=== PATIENT | female | born 1955 | race African-American/Black ===

== ENCOUNTER 2017-07-17 21:19 | Emergency (ER) | payer MEDICAID, OTHER ==
[~2017-07-17] VITALS: Ht 167.6 cm; Wt 72.6 kg
[~2017-07-17 21:19] MED LIST: "\\\"BP MED\\\""; "\\\"CHOLESTEROL MED\\\""; FURO-145 PO; LORA0.5T PO; [UNRECOGNIZED DRUG - REMARK]
[2017-07-17] MEDS ORDERED: MECLIZINE HCL 25 MG TABLET ONE (21:48)
[2017-07-17] MEDS ORDERED: HYDROCODONE/APAP 5/325MG 1 EACH TABLET ONE (21:48)
--- NOTE | 2017-07-17 21:54 | NUR ---
PT BACK FROM RADIOLOGY. PENDING CT HEAD RESULT.
--- NOTE | 2017-07-17 21:58 | NUR ---
PT MEDICATED ORDERED.
--- NOTE | 2017-07-17 21:58 | NUR ---
MITER GRINDER OPERATOR AT BEDSIDE FOR BLOOD DRAW.
[2017-07-17] MEDS ORDERED: HYDROCODONE/APAP 5/325MG 1 EACH TABLET PO ONE (22:00)
[2017-07-17] MEDS ORDERED: MECLIZINE HCL 12.5 MG TABLET PO ONE (22:00)
[2017-07-17 22:12] LABS: BASOPHILS # (AUTO) 0.1 /CMM (0.0-0.2); BASOPHILS % (AUTO) 0.8 % (0.0-2.0); HEMATOCRIT 40 % (33-45); LYMPHOCYTES # (AUTO) 1.1 /CMM (0.8-4.8); LYMPHOCYTES % (AUTO) 14.8 % (20.0-44.0); MEAN CORPUSCULAR HGB CONC 33 g/dl (31.0-36.0); MEAN CORPUSCULAR VOLUME 95 fL (82-100); MONOCYTES # (AUTO) 0.2 /CMM (0.1-1.30); NEUTROPHILS % (AUTO) 81.4 % (43.0-81.0); PLATELET COUNT (AUTO) 282 /CMM (150-450); RDW COEFFICIENT OF VARIATION 13.4 (11.5-15.0); RED BLOOD CELL COUNT(AUTO) 4.19 MIL/uL (4.0-5.2); WHITE BLOOD COUNT (AUTO) 7.4 K/uL (4.3-11.0)
[2017-07-17 22:21] LABS: CALCIUM, SERUM 8.8 mg/dL (8.5-10.1); CREATININE 0.7 mg/dL (0.6-1.3); POTASSIUM 3.9 mmol/L (3.5-5.1)
[2017-07-17 22:27] LABS: ALBUMIN 3.4 g/dL (3.4-5.0); BILIRUBIN,DIRECT 0.1 mg/dL (0.0-0.2); BILIRUBIN,TOTAL 0.3 mg/dL (0.2-1.0); TOTAL PROTEIN, SERUM 7.3 g/dL (6.4-8.2)
--- NOTE | 2017-07-17 23:27 | NUR ---
Patient discharged to home in stable condition. Written and verbal after care instructions given. Patient verbalizes understanding of instruction. ambulatory with a steady gait noted. pt aaox4 no acute distress noted, resp even and unlabored. advic ept not to drive or operate any machinery due to pt was given narcotic medicine. pt verbalize understanding. pt family member at bedisde to take pt home.
--- NOTE | 2017-07-17 23:27 | NUR ---
Note melisaluis in EDM - 07/17/17 at 2330 by AMOL Patient discharged to home in stable condition. Written and verbal after care instructions given. Patient verbalizes understanding of instruction AND RX. PT AMBULATED OUT WITH A STEADY GAIT. VSS. NAD NOTED. PT DENIES PAIN OR DIZZINESS AT THIS TIME.
[2017-07-17 23:28] VITALS: BP 156/85
== END 2017-07-17 23:29 | disposition home or self-care (01) ==
LOC: ER 21:26
DX: R51 Headache (principal); R42 Dizziness and giddiness; E11.9 Type 2 diabetes mellitus without complications; F17.200 Nicotine dependence, unspecified, uncomplicated; I10 Essential (primary) hypertension; E78.5 Hyperlipidemia, unspecified
CPT/HCPCS: 36415; 70450-TC; 80048-TC; 80076-TC; 82962-TC; 85025-TC; A4606; J8597; Z7610

== ENCOUNTER 2017-09-16 17:57 | Inpatient (IN) | payer OTHER ==
[~2017-09-16] VITALS: Ht 170.2 cm; Wt 83.9 kg
--- NOTE | 2017-09-16 18:05 | NUR ---
SOB SINCE YESTERDAY. PATIENT STATES THAT SHE FEELS "LETHARGIC". NAD NOTED. PT AAO X4, AMB WITH STEADY GAIT. RR EVEN AND UNLABORED. PENDING MD BERNSTEIN.
[2017-09-16 18:42] LABS: INR 0.89 (0.85-1.15)
[2017-09-16] MEDS ORDERED: IV NS 0.9% 1,000 ML BAG IV ONE (19:00)
[2017-09-16 19:38] LABS: CALCIUM, SERUM 8.7 mg/dL (8.5-10.1); CHLORIDE 84 mmol/L (98-107); CREATININE 1.9 mg/dL (0.6-1.3); POTASSIUM 5.6 mmol/L (3.5-5.1); UREA NITROGEN, BLOOD 25 mg/dL (7-18)
[2017-09-16 19:43] LABS: TROPONIN I < 0.017 ng/mL (0.00-0.056)
[2017-09-16 20:02] LABS: SODIUM SERUM 119 mmol/L (136-145)
[2017-09-16 20:04] LABS: CARBON DIOXIDE 7 mmol/L (21-32)
[2017-09-16 20:06] LABS: GLUCOSE 846 mg/dL (74-106)
--- NOTE | 2017-09-16 20:12 | NUR ---
[facility]
[2017-09-16] MEDS ORDERED: ESCI5TAB PO (20:25)
[2017-09-16] MEDS ORDERED: INSU100V7 SQ (20:25)
[2017-09-16] MEDS ORDERED: INSULIN REGULAR, HUMAN 100 UNIT/ML 10 ML VIAL ONE (20:26)
[2017-09-16] MEDS ORDERED: INSULIN REGULAR, HUMAN 100 UNIT/ML 10 ML VIAL IV ONE (20:30)
--- NOTE | 2017-09-16 20:34 | NUR ---
CALLED S5 Tech SUPERVISOR SHRIMP POND WAS PAGED.
[2017-09-16] MEDS ORDERED: INSULIN REGULAR, HUMAN 100 UNIT in IV NS 0.9% 99 ML IV STA ×2 (20:36)
[2017-09-16 20:38] LABS: ABG BASE EXCESS -23.1 mmol/L; ABG OXYGEN SATURATION 97.2 % (92.0-98.5); ABG PCO2 15.1 mmHg (35.0-45.0); ABG PH 7.097 (7.350-7.450); ABG PO2 123.2 mmHg (75.0-100.0); AaDO2 8.4 mmHg; COHb 0.4 % (0.5-1.5); MetHb 0.4 % (0.0-1.5); O2Hb 96.4 % (94.0-97.0); SITE, ABG Right Radial; VENT MODE, BG ROOM AIR
--- NOTE | 2017-09-16 20:54 | NUR ---
REPORT GIVEN TO HOLA ABURTO FOR ELIU
--- NOTE | 2017-09-16 20:54 | NUR ---
RECEIVED REPORT FROM ER NURSE GIAN.
--- NOTE | 2017-09-16 21:08 | NUR ---
URINE OBTAINED SENT TO LAB
[2017-09-16 21:25] VITALS: BP 136/63
--- NOTE | 2017-09-16 21:25 | NUR ---
EHS TEACHER INITIAL NOTE PATIENT BROUGHT VIA GURNEY, PATIENT ABLE TO AMBULATE TO BED. PER PATIENT SHE WAS HAVING SHORTNESS OF BREATH AT HOME AND DIZZINESS, STATES SHE FELL TWICE AT HOME AND SUSTAINED A BRUISE ON HER RIGHT DELTOID. PATIENT REQUESTED TO BE PLACED ON OXYGEN FOR COMFORT. PATIENT AWAKE A/OX4, ABLE TO MAKE NEEDS KNOWN. STATES SHE HAS SOB, BUT FEELS BETTER WITH OXYGEN. NOTED WITH SOB ON EXERTION. SKIN WARM AND DRY TO TOUCH. ON TELE MONITOR SINUS RHYTHM. ON INSULIN DRIP AT 5UNITS/HR. ORIENTED PATIENT TO ROOM, UNIT, AND CALL LIGHT SYSTEM. PATIENT VERBALIZED UNDERSTANDING. SIDE RAILS UP AND LOCKED. BED KEPT AT LOWEST POSITION. CALL LIGHT KEPT WITHIN EASY REACH. WILL CONTINUE TO MONITOR.
[2017-09-16 21:30] LABS: APPEARANCE,URINE Clear (CLEAR); BILIRUBIN,URINE SMALL (NEGATIVE); BLOOD, URINE Small Ery/uL (NEGATIVE); COLOR,URINE Yellow (YELLOW); KETONES,URINE >=160 (NEGATIVE); LEUKOCYTE ESTERASE ,URINE Negative (NEGATIVE); NITRITE, URINE Negative (NEGATIVE); PROTEIN,URINE 30 mg/dl (NEGATIVE); UGLUCOSE 500 MG/DL mg/dL (NEGATIVE); UROBILINOGEN,URINE 0.2 EU/dL (0.2)
[2017-09-16 21:35] LABS: BACTERIA,URINE Moderate /HPF (None Seen); SQUAMOUS EPITHELIAL CELL,UR Few /HPF (None Seen)
[2017-09-16 21:36] LABS: RBC,URINE 0-2 /HPF (0-2); WBC,URINE 0-2 /HPF (0-3)
[2017-09-16 22:00] VITALS: BP 141/74
[2017-09-16 22:00] LABS: BASOPHILS # (AUTO) 0.1 /CMM (0.0-0.2); BASOPHILS % (AUTO) 0.5 % (0.0-2.0); HEMATOCRIT 40 % (33-45); HEMOGLOBIN 12.4 g/dL (11.5-14.8); LYMPHOCYTES # (AUTO) 1.6 /CMM (0.8-4.8); LYMPHOCYTES % (AUTO) 13.1 % (20.0-44.0); MEAN CORPUSCULAR HEMOGLOBIN 32 PG (26.0-33.0); MEAN CORPUSCULAR HGB CONC 31 g/dl (31.0-36.0); MEAN CORPUSCULAR VOLUME 102 fL (82-100); MONOCYTES # (AUTO) 0.8 /CMM (0.1-1.30); MONOCYTES % (AUTO) 6.3 % (2.0-12.0); NEUTROPHILS # (AUTO) 9.6 /CMM (1.8-8.9); NEUTROPHILS % (AUTO) 80.1 % (43.0-81.0); PLATELET COUNT (AUTO) 238 /CMM (150-450); RDW COEFFICIENT OF VARIATION 13.8 (11.5-15.0); RED BLOOD CELL COUNT(AUTO) 3.92 MIL/uL (4.0-5.2)
[2017-09-16 23:00] VITALS: BP 110/64
--- NOTE | 2017-09-16 23:25 | NUR ---
WIRE TAPER NOTE INFORMED DR. NOLASCO PENDING ADMISSION ORDERS, HE WILL PLACE ORDERS SOON. INFORMED PATIENT REQUESTING TO EAT. OK FOR ADA DIET. NOTED AND CARRIED OUT. WILL CONTINUE TO MONITOR.
[2017-09-17] VITALS (24 sets, daily range): BP systolic 101–139; BP diastolic 31–93
[2017-09-17] MEDS ORDERED: ONDANSETRON HCL/PF 4 MG/2 ML VIAL IVP PRN
[2017-09-17] MEDS ORDERED: MORPHINE SULFATE INJ 2 MG/ML DISP.SYRIN IV PRN
[2017-09-17] MEDS ORDERED: INSULIN REGULAR, HUMAN 100 UNIT in IV NS 0.9% 99 ML IV PRN ×2
[2017-09-17] MEDS ORDERED: ACETAMINOPHEN 325 MG TABLET PO PRN
[2017-09-17] MEDS: IV 1/2NS 1000 ML 1,000 ML IV PRN ×2 (00:12→13:38)
[2017-09-17 00:38] LABS: CALCIUM, SERUM 8.4 mg/dL (8.5-10.1); CREATININE 1.7 mg/dL (0.6-1.3); POTASSIUM 4.4 mmol/L (3.5-5.1)
[2017-09-17] MEDS ORDERED: INSULIN GLARGINE, 100 UNIT/ML CARTRIDGE SQ ONE (00:38)
[2017-09-17] MEDS: INSULIN GLARGINE, 100 UNIT/ML CARTRIDGE SQ SCH ×2 (00:59→21:23)
[2017-09-17] MEDS: LORAZEPAM INJ 2 MG/ML VIAL IV PRN ×2 (01:07→13:17)
--- NOTE | 2017-09-17 01:27 | NUR ---
MACHINE PLATE STACKER NOTE DR. NOLASCO AT BEDSIDE
[2017-09-17] MEDS: BLOOD SUGAR DIAGNOSTIC 1 EACH STRIP IN SCH ×23 (02:55→23:47)
--- NOTE | 2017-09-17 04:00 | NUR ---
PROPERTY ANALYST NOTE PATIENT RESTING COMFORTABLY. PATIENT STATES SHE'S FEELING A LOT BETTER. WILL CONTINUE TO MONITOR.
[2017-09-17 05:20] LABS: ALBUMIN 3.5 g/dL (3.4-5.0); BILIRUBIN,TOTAL 0.8 mg/dL (0.2-1.0); CALCIUM, SERUM 8.1 mg/dL (8.5-10.1); CREATININE 1.6 mg/dL (0.6-1.3); MAGNESIUM 2.6 mg/dL (1.8-2.4); PHOSPHORUS 3.4 mg/dL (2.5-4.9); POTASSIUM 4.4 mmol/L (3.5-5.1); TOTAL PROTEIN, SERUM 7.2 g/dL (6.4-8.2)
[2017-09-17 05:33] LABS: THYROID STIMULATING HORMONE 1.419 uIU/mL (0.358-3.74)
[2017-09-17 06:09] LABS: EOSINOPHILS % (AUTO) 0.9 % (0.0-6.0); HEMATOCRIT 38 % (33-45); HEMOGLOBIN 12.4 g/dL (11.5-14.8); LYMPHOCYTES % (AUTO) 27.8 % (20.0-44.0); MEAN CORPUSCULAR HEMOGLOBIN 32 PG (26.0-33.0); MEAN CORPUSCULAR HGB CONC 33 g/dl (31.0-36.0); MEAN CORPUSCULAR VOLUME 98 fL (82-100); MONOCYTES % (AUTO) 9.2 % (2.0-12.0); NEUTROPHILS % (AUTO) 61.3 % (43.0-81.0); PLATELET COUNT (AUTO) 210 /CMM (150-450); RDW COEFFICIENT OF VARIATION 13.3 (11.5-15.0); RED BLOOD CELL COUNT(AUTO) 3.86 MIL/uL (4.0-5.2); WHITE BLOOD COUNT (AUTO) 8.6 K/uL (4.3-11.0)
[2017-09-17 06:10] LABS: BASOPHILS % (AUTO) 0.8 % (0.0-2.0)
[2017-09-17] MEDS ORDERED: ALBUTEROL FS 2.5 MG/3 ML VIAL.NEB NEB PRN (07:00)
[2017-09-17] MEDS ORDERED: IPRATROPIUM NEB FS 0.5 MG/2.5 ML AMPUL.NEB NEB PRN (07:00)
--- NOTE | 2017-09-17 07:36 | NUR ---
CONSULTING BUSINESS DEVELOPER CLOSING NOTE NO SIGNIFICANT CHANGES OVERNIGHT. NO C/O SOB. SKIN WARM AND DRY TO TOUCH. ALL DUE MEDS GIVEN. NO C/O N/V. ALL NEEDS ANTICIPATED AND MET. ON IVF AND INSULIN DRIP AT 1 UNIT/HR. SIDE RAILS UP AND LOCKED. BED KEPT AT LOWEST POSITION. CALL LIGHT KEPT WITHIN EASY REACH. CONTINUITY OF CARE ENDORSED TO AM NURSE.
--- NOTE | 2017-09-17 08:00 | NUR ---
Patient is awake and alert, oriented x 4. He has co pain right eye, and has left hand weakness. His grasp is weak, decreased gross motor activity. Fingers especially weak to left hand. Dimitry Chavez RN Addendum: 09/17/17 at 1708 by DIMITRY CHAVEZ RN Please disregard last four nurse entries, times, 0800, 1000, 1200, 1400, 1600, due to wrong patient information. Dimitry Chavez RN
--- NOTE | 2017-09-17 08:00 | NUR ---
Patient on regular insulin drip 1 unit per ml, and covering BS on algorythm 1. See BS results on flow sheet. Patient is awake and alert, she asks to get out of bed with assist due to co dizziness. She does have a steady gait. Dimitry Rivera RN
[2017-09-17] MEDS: PANTOPRAZOLE 40 MG TABLET.DR PO SCH (08:29)
[2017-09-17] MEDS: DOCUSATE SODIUM 100 MG CAPSULE PO SCH ×2 (08:29→17:42)
[2017-09-17 09:06] LABS: CALCIUM, SERUM 8.4 mg/dL (8.5-10.1); CREATININE 1.4 mg/dL (0.6-1.3); POTASSIUM 4.2 mmol/L (3.5-5.1)
--- NOTE | 2017-09-17 10:00 | NUR ---
Patient co pain right eye, and medicated with norco 5mg 1 tab for pain scale 1-10=8, and resolved to 4-5/10. Dimitry Rivera RN
--- NOTE | 2017-09-17 10:00 | NUR ---
Patient eating breakfast earlier, and eating slowly. Encouraged to eat especially when on insulin drip. No co pain. Titrate insulin drip per protocol. Dimitry Rivera RN
[2017-09-17] MEDS ORDERED: INS (REG) DRIP 100 U/100 ML NS IV PRN ×2 (11:00)
--- NOTE | 2017-09-17 12:00 | NUR ---
Patient remains on insulin drip, and BS in mid 200 range, and remaining on algorthythm 1. Family visiting and updated on present condition. Dimitry Rivera RN
--- NOTE | 2017-09-17 12:30 | NUR ---
Patient received morphine 4mg IVP earlier for right eye pain, and pain resolves to 3/10. Dimitry Rivera RN
[2017-09-17 13:34] LABS: CALCIUM, SERUM 8.1 mg/dL (8.5-10.1); CREATININE 1.2 mg/dL (0.6-1.3)
[2017-09-17 13:38] LABS: POTASSIUM 3.9 mmol/L (3.5-5.1)
--- NOTE | 2017-09-17 14:00 | NUR ---
Patient encouraged to eat lunch, and I did set up tray and cut meat for patient, and he did consume 75% of food on tray. Dimitry Rivera RN
--- NOTE | 2017-09-17 14:00 | NUR ---
Patient received ativan 1 mg ivp co being restless. Patient does fall to sleep and resting well. Dimitry Rivera RN
--- NOTE | 2017-09-17 16:00 | NUR ---
Patient resting up in chair, he prefers sitting in chair rather than resting in bed. His pain has resolved. Dimitry Rivera RN
--- NOTE | 2017-09-17 16:01 | NUR ---
Patient resting quietly in bed with eyes closed. No co pain. Remains on insulin drip. Converses with family member on phone earlier, and updates regarding being in the hospital. Dimitry Rivera RN
--- NOTE | 2017-09-17 18:20 | NUR ---
BS 314, and insulin drip increased to 3 units per hour per algorhythm #1. Patient without co pain this day. She is pleasant and cooperative. I did teaching regarding taking BS more often at home. I taught her to log her BS daily, taking finger stick three times a day and than in the evening. She gave verbal acknowledgement of understanding information received. Dimitry Rivera RN
--- NOTE | 2017-09-17 18:30 | NUR ---
See spread sheet for Q1hour BS checks. Accu checks reflect on the spread sheet, not documented on the emar. All blood sugars covered per IV insulin drip protocol/do. Dimitry Rivera RN
--- NOTE | 2017-09-17 19:30 | NUR ---
CLUBHOUSE ATTENDANT INITIAL NOTE RECEIVED PATIENT AWAKE A/OX4, ABLE TO MAKE NEEDS KNOWN. DENIES PAIN OR DISCOMFORT. DENIES SOB. DENIES N/V. SKIN WARM AND DRY TO TOUCH. STATES SHE STILL HAS DIZZINESS WHEN SHE WALKS LONG DISTANCE, BUT NOT WHEN GETTING TO SIT ON THE COMMODE. PATIENT ON ROOM AIR, SPO2 98%. ON TELE MONITOR SINUS RHYTHM. WITH INSULIN DRIP AT 4UNITS/HR AND IVF RUNNING. HOB ELEVATED. SIDE RAILS UP AND LOCKED. BED KEPT AT LOWEST POSITION. CALL LIGHT KEPT WITHIN EASY REACH. WILL CONTINUE TO MONITOR.
[2017-09-17] MEDS: ATORVASTATIN 40 MG TABLET PO SCH (21:23)
[2017-09-17] MEDS ORDERED: CALCIUM CARBONATE 500 MG TAB.CHEW PO PRN (22:30)
--- NOTE | 2017-09-17 22:30 | NUR ---
EQUIPMENT SERVICE LEAD NOTE PATIENT REQUESTING FOR TUMS, MADE AWARE, WITH NEW ORDERS FOR TUMS q6 PRN
[2017-09-18] VITALS (21 sets, daily range): BP systolic 116–155; BP diastolic 56–96
[2017-09-18] MEDS: BLOOD SUGAR DIAGNOSTIC 1 EACH STRIP IN SCH ×10 (00:09→09:13)
[2017-09-18 00:41] LABS: CALCIUM, SERUM 8.3 mg/dL (8.5-10.1); CREATININE 1.1 mg/dL (0.6-1.3); POTASSIUM 3.4 mmol/L (3.5-5.1)
[2017-09-18] MEDS: LORAZEPAM INJ 2 MG/ML VIAL IV PRN ×2 (01:13→13:35)
--- NOTE | 2017-09-18 01:21 | NUR ---
LEAD SQL DEVELOPER NOTE RELAYED TO DR. NOLASCO RECENT BMP RESULT, POTASSIUM 3.4, ANION GAP 14 AND RECENT BLOOD SUGAR . WITH NNO AT THIS TIME. WILL CONTINUE TO MONITOR.
[2017-09-18] MEDS: IV 1/2NS 1000 ML 1,000 ML IV PRN ×2 (01:24→13:42)
[2017-09-18 05:26] LABS: CALCIUM, SERUM 8.8 mg/dL (8.5-10.1); POTASSIUM 3.4 mmol/L (3.5-5.1)
[2017-09-18 05:29] LABS: BASOPHILS % (AUTO) 0.9 % (0.0-2.0); EOSINOPHILS % (AUTO) 2.2 % (0.0-6.0); HEMATOCRIT 40 % (33-45); HEMOGLOBIN 13.2 g/dL (11.5-14.8); LYMPHOCYTES # (AUTO) 1.9 /CMM (0.8-4.8); LYMPHOCYTES % (AUTO) 40.5 % (20.0-44.0); MEAN CORPUSCULAR HEMOGLOBIN 32 PG (26.0-33.0); MEAN CORPUSCULAR HGB CONC 33 g/dl (31.0-36.0); MEAN CORPUSCULAR VOLUME 96 fL (82-100); MONOCYTES # (AUTO) 0.5 /CMM (0.1-1.30); NEUTROPHILS # (AUTO) 2.2 /CMM (1.8-8.9); NEUTROPHILS % (AUTO) 46.4 % (43.0-81.0); PLATELET COUNT (AUTO) 200 /CMM (150-450); RDW COEFFICIENT OF VARIATION 13.4 (11.5-15.0); RED BLOOD CELL COUNT(AUTO) 4.12 MIL/uL (4.0-5.2); WHITE BLOOD COUNT (AUTO) 4.6 K/uL (4.3-11.0)
--- NOTE | 2017-09-18 06:55 | NUR ---
FOOD OR BAGGAGE HANDLING RAMPMAN CLOSING NOTE NO SIGNIFICANT CHANGES OVERNIGHT. NO C/O SOB. NO C/O PAIN OR DISCOMFORT. SLEPT WELL THROUGH THE NIGHT. SKIN WARM AND DRY TO TOUCH. ALL DUE MEDS GIVEN. NO C/O N/V. ALL NEEDS ANTICIPATED AND MET. ON IVF AND INSULIN DRIP AT 1 UNIT/HR. SIDE RAILS UP AND LOCKED. BED KEPT AT LOWEST POSITION. CALL LIGHT KEPT WITHIN EASY REACH. WILL ENDORSE CONTINUITY OF CARE TO AM NURSE.
--- NOTE | 2017-09-18 07:00 | NUR ---
SHOVEL LOADER OPERATOR- INITIAL NOTE RECEIVED PT A/O X4, RESTING IN BED. ON ROOM AIR, RESPIRATIONS EVEN AND UNLABORED, NO SOB OR DISTRESS PRESENT. BEDSIDE MONITOR REVEALS SINUS RHYTHM. TWO IVS PRESENT: RIGHT HAND 20G AND LEFT HAND 20G RUNNING 1/2NS @ 80 MLS/HR AND INSULIN GTT AT 1 UNIT/HR. WILL CONTINUE TO MONITOR.
[2017-09-18] MEDS: PANTOPRAZOLE 40 MG TABLET.DR PO SCH (08:22)
[2017-09-18] MEDS: DOCUSATE SODIUM 100 MG CAPSULE PO SCH ×2 (08:22→17:36)
[2017-09-18 09:33] LABS: CALCIUM, SERUM 8.7 mg/dL (8.5-10.1); CREATININE 1.1 mg/dL (0.6-1.3); POTASSIUM 3.6 mmol/L (3.5-5.1)
[2017-09-18] MEDS ORDERED: DEXTROSE 50%-WATER 50 ML DISP.SYRIN IV PRN (10:00)
[2017-09-18] MEDS ORDERED: *INSULIN REGULAR(HUMULIN R)HUM 100 UNIT/ML VIAL SQ PRN (10:00)
[2017-09-18] MEDS ORDERED: IV NS 0.9% 500 ML IV ONE (10:00)
[2017-09-18] MEDS: BLOOD SUGAR DIAGNOSTIC 1 EACH STRIP VI SCH ×3 (12:10→21:49)
--- NOTE | 2017-09-18 17:40 | NUR ---
REAL ESTATE ADMINISTRATOR- INFORMED Paco OLIVEIRA SKYLIGHTS ASSEMBLER PT'S LATEST BLOOD SUGAR BEFORE DINNER IS 386. ADMINISTERED 15 UNITS OF REGULAR INSULIN AND 8 UNITS OF NOVOLOG ORDERED IN MAY. PT ALSO SCHEDULED TO RECEIVE 21 UNITS OF LANTUS AT BEDTIME. PER SKYLIGHTS ASSEMBLER, OK TO CONTINUE WITH TRANSFER TO [facility] ORDERED. WILL CONTINUE TO MONITOR.
[2017-09-18] MEDS: INSULIN REGULAR, HUMAN 100 UNIT/ML 3 ML VIAL SQ PRN ×2 (17:41→21:56)
--- NOTE | 2017-09-18 18:15 | NUR ---
PLATEN PRESS FEEDER- REPORT GIVEN TO GEORGE ABURTO. PT TO TRANSFER TO MED SURG ROOM 111-2. 1845- PT TRANSFERRED TO ROOM 111-2. ALL BELONGINGS SENT WITH PATIENT.
[2017-09-18] MEDS ORDERED: INSULIN ASPART/LISPRO 100 UNIT/ML CARTRIDGE SQ SCH (18:30)
--- NOTE | 2017-09-18 18:56 | NUR ---
ACADEMIC COACH NOTES PATIENT RECEIVED FROM ICU FROM CRISELDA EDGAR, VITALS STABLE, PATIENT AOX4, NO SIGNS OF DISTRESS, WILL ENDORSE TO RACE AND SPORTS BOOK WRITER FOR CONTINUITY OF CARE.
--- NOTE | 2017-09-18 20:00 | NUR ---
RN NOTES RECEIVED PATIENT'S BEDSIDE REPORT FROM AM NURSE. PT IS IN BED, AWAKE, A/O X4. ON RA WITH SPO2 OF 98%. NO COMPLAINT OF SOB OR ANY DISCOMFORT. LEFT HAND IV LINE 20G AND RIGHT HAND IV LINE 20G ARE INTACT, PATIENT WITH 1/2 NS @ 80ML/HR. ALL SAFETY MEASURES ARE IMPLEMENTED, BED IN LOW, LOCKED POSITION, CALL LIGHT IN REACH. WILL CONT. TO MONITOR.
--- NOTE | 2017-09-18 20:30 | NUR ---
bucket pusher Note Received a call from HAYLEY, Freelance Photographer from [facility], informing RN that patient needs to be transferred to [facility]. Richard Shaikh NP placed orders to discharge patient, with Dr-to-Dr endorsement completed. Noted. Primary RN notified. Per HAYLEY, preparations regarding transfer will be handled by them and he will be endorsing the [facility] . Awaiting call back regarding the RN-RN endorsement to [facility].
[2017-09-18] MEDS ORDERED: LORAZEPAM INJ 2 MG/ML VIAL IV ONE (21:00)
[2017-09-18] MEDS: ATORVASTATIN 40 MG TABLET PO SCH (21:45)
[2017-09-18] MEDS ORDERED: INSULIN GLARGINE, 100 UNIT/ML CARTRIDGE SQ SCH (22:00)
--- NOTE | 2017-09-18 22:35 | NUR ---
gas meter installer note Followed up with Laura, , for any update for the patient's transfer. was provided with room# 307-A, nurse to endorse to is Nicolle at . [facility] with ETA at [phone]. Primary nurse made aware to give endorsement via telephone. patient update regarding her discharge.
--- NOTE | 2017-09-18 22:40 | NUR ---
RN NOTES GAVE PT'S REPORT TO CRISELDA GONZALEZ FROM [facility]. PT IS GOING TO BE TRANSFERRED VIA AMBULANCE TO [facility] ROOM 307-A.
--- NOTE | 2017-09-18 23:15 | NUR ---
PT LEFT BY AMBULANCE,B/P-155/90, HR-90, SPO2-99%,RR-18, NO PAIN. NO SOB OR ANY DISCOMFORT AT THIS TIME.
== END 2017-09-18 23:10 | disposition short-term general hospital (02) | DRG 637 ==
LOC: ER 17:59 → ICU 20:40 → MEDSG1 09-18 19:16
PROVIDERS: ADMIT Internal Medicine; ATTEND Internal Medicine
DX: E11.10 Type 2 diabetes mellitus with ketoacidosis without coma (principal); N17.0 Acute kidney failure with tubular necrosis; E87.1 Hypo-osmolality and hyponatremia; E44.1 Mild protein-calorie malnutrition; E11.22 Type 2 diabetes mellitus with diabetic chronic kidney disease; I12.9 Hypertensive chronic kidney disease with stage 1 through stage 4 chronic kidney disease, or unspecified chronic kidney disease; N18.9 Chronic kidney disease, unspecified; Z79.4 Long term (current) use of insulin; Z79.899 Other long term (current) drug therapy; E11.65 Type 2 diabetes mellitus with hyperglycemia; J44.9 Chronic obstructive pulmonary disease, unspecified; E78.5 Hyperlipidemia, unspecified; E66.9 Obesity, unspecified; Z96.41 Presence of insulin pump (external) (internal); E86.1 Hypovolemia; Z68.29 Body mass index [BMI] 29.0-29.9, adult; Z72.0 Tobacco use
CPT/HCPCS: 36415; 36600; 71045-TC; 80048-TC; 80053-TC; 80061-TC; 81000-TC; 82962-TC; 83605-TC; 83735-TC; 84100-TC; 84443-TC; 84484-TC; 85025-TC; 85730-TC; 87081-TC; 87086-TC; A4606; J1815; J2060; J3490; J7030; J7040

== ENCOUNTER 2017-11-06 11:23 | Emergency (ER) | payer OTHER ==
[~2017-11-06] VITALS: Ht 172.7 cm; Wt 86.2 kg
[~2017-11-06 11:23] MED LIST changes: +ESCI5TAB PO; -FURO-145 PO; +INSU100V7 SQ
--- NOTE | 2017-11-06 11:35 | NUR ---
dr liao at bedside for eval.
--- NOTE | 2017-11-06 11:45 | NUR ---
iv line started blood drawn and sent to lab.
[2017-11-06 11:57] LABS: BASOPHILS # (AUTO) 0.1 /CMM (0.0-0.2); BASOPHILS % (AUTO) 2.1 % (0.0-2.0); HEMATOCRIT 42 % (33-45); HEMOGLOBIN 13.6 g/dL (11.5-14.8); LYMPHOCYTES # (AUTO) 2.2 /CMM (0.8-4.8); LYMPHOCYTES % (AUTO) 33.9 % (20.0-44.0); MEAN CORPUSCULAR HEMOGLOBIN 31 PG (26.0-33.0); MEAN CORPUSCULAR HGB CONC 33 g/dl (31.0-36.0); MEAN CORPUSCULAR VOLUME 95 fL (82-100); MONOCYTES # (AUTO) 0.4 /CMM (0.1-1.30); MONOCYTES % (AUTO) 5.9 % (2.0-12.0); NEUTROPHILS # (AUTO) 3.7 /CMM (1.8-8.9); NEUTROPHILS % (AUTO) 57.1 % (43.0-81.0); PLATELET COUNT (AUTO) 345 /CMM (150-450); RDW COEFFICIENT OF VARIATION 12.4 (11.5-15.0); WHITE BLOOD COUNT (AUTO) 6.5 K/uL (4.3-11.0)
[2017-11-06] MEDS ORDERED: ONDANSETRON HCL/PF 4 MG/2 ML VIAL ONE (11:58)
[2017-11-06] MEDS ORDERED: HYDROMORPHONE 1 MG/1 ML DISP.SYRIN ONE (11:58)
[2017-11-06] MEDS ORDERED: IV NS 0.9% 500 ML BAG IV ONE (12:00)
[2017-11-06] MEDS ORDERED: ONDANSETRON HCL/PF 4 MG/2 ML VIAL IVP ONE (12:00)
[2017-11-06] MEDS ORDERED: HYDROMORPHONE INJ 2 MG/ML DISP.SYRIN IV ONE (12:00)
--- NOTE | 2017-11-06 12:02 | NUR ---
pt to radiology for abdominal ct scan via [facility].
[2017-11-06 12:06] LABS: ALBUMIN 3.8 g/dL (3.4-5.0); BILIRUBIN,DIRECT 0.2 mg/dL (0.0-0.2); BILIRUBIN,TOTAL 0.8 mg/dL (0.2-1.0); CALCIUM, SERUM 8.5 mg/dL (8.5-10.1); POTASSIUM 4.5 mmol/L (3.5-5.1); TOTAL PROTEIN, SERUM 7.3 g/dL (6.4-8.2)
--- NOTE | 2017-11-06 12:40 | NUR ---
barb nicole unable to provide urine sample at this time.
[2017-11-06 13:00] LABS: APPEARANCE,URINE Clear (CLEAR); BILIRUBIN,URINE SMALL (NEGATIVE); BLOOD, URINE Negative Ery/uL (NEGATIVE); COLOR,URINE Yellow (YELLOW); KETONES,URINE >=160 (NEGATIVE); LEUKOCYTE ESTERASE ,URINE Negative (NEGATIVE); NITRITE, URINE Negative (NEGATIVE); PH,URINE 5.5 (5.0-8.0); PROTEIN,URINE Trace mg/dl (NEGATIVE); UGLUCOSE 500 MG/DL mg/dL (NEGATIVE); UROBILINOGEN,URINE 0.2 EU/dL (0.2)
[2017-11-06 13:06] LABS: CLINITEST,URINE MP
[2017-11-06 13:07] LABS: BACTERIA,URINE Rare /HPF (None Seen); RBC,URINE NONE SEEN /HPF (0-2); SQUAMOUS EPITHELIAL CELL,UR Few /HPF (None Seen); WBC,URINE NONE SEEN /HPF (0-3)
[2017-11-06 13:10] VITALS: BP 129/88
--- NOTE | 2017-11-06 13:31 | NUR ---
IV removed. Catheter intact and site benign. Pressure and 4x4 applied to site. No bleeding noted.Patient discharged to home in stable condition. Written and verbal after care instructions given. Patient verbalizes understanding of instruction.
== END 2017-11-06 13:34 | disposition home or self-care (01) ==
LOC: ER 11:24
DX: R10.31 Right lower quadrant pain (principal); E11.9 Type 2 diabetes mellitus without complications; F17.200 Nicotine dependence, unspecified, uncomplicated; Z60.2 Problems related to living alone; Z79.4 Long term (current) use of insulin
CPT/HCPCS: 36415; 74176; 80048; 80076; 81001; 83690; 85025; 96374; 96375; 99285; A4606; J1170; J2405; J7040; Z7610; 81000-TC

== ENCOUNTER 2017-11-07 07:22 | Emergency (ER) | payer OTHER ==
[~2017-11-07] VITALS: Ht 170.2 cm; Wt 83.9 kg
[2017-11-07 07:56] LABS: BASOPHILS # (AUTO) 0.1 /CMM (0.0-0.2); BASOPHILS % (AUTO) 1.2 % (0.0-2.0); EOSINOPHILS % (AUTO) 2.6 % (0.0-6.0); HEMATOCRIT 38 % (33-45); HEMOGLOBIN 12.3 g/dL (11.5-14.8); LYMPHOCYTES # (AUTO) 3.2 /CMM (0.8-4.8); LYMPHOCYTES % (AUTO) 53.8 % (20.0-44.0); MEAN CORPUSCULAR HEMOGLOBIN 32 PG (26.0-33.0); MEAN CORPUSCULAR HGB CONC 33 g/dl (31.0-36.0); MEAN CORPUSCULAR VOLUME 97 fL (82-100); MONOCYTES # (AUTO) 0.3 /CMM (0.1-1.30); MONOCYTES % (AUTO) 5.6 % (2.0-12.0); NEUTROPHILS # (AUTO) 2.2 /CMM (1.8-8.9); NEUTROPHILS % (AUTO) 36.8 % (43.0-81.0); PLATELET COUNT (AUTO) 318 /CMM (150-450); RED BLOOD CELL COUNT(AUTO) 3.86 MIL/uL (4.0-5.2); WHITE BLOOD COUNT (AUTO) 5.9 K/uL (4.3-11.0)
[2017-11-07] MEDS ORDERED: HYDROMORPHONE 1 MG/1 ML DISP.SYRIN ONE (08:01)
[2017-11-07 08:06] LABS: CALCIUM, SERUM 8.4 mg/dL (8.5-10.1); CREATININE 1.1 mg/dL (0.6-1.3); POTASSIUM 4.7 mmol/L (3.5-5.1)
[2017-11-07] MEDS: HYDROMORPHONE 1 MG/1 ML DISP.SYRIN IM ONE (08:11)
[2017-11-07 08:56] VITALS: BP 148/78
--- NOTE | 2017-11-07 08:56 | NUR ---
Patient discharged to home in stable condition. Written and verbal after care instructions given. Patient verbalizes understanding of instruction.
== END 2017-11-07 08:58 | disposition home or self-care (01) ==
LOC: ER 07:23
DX: K57.32 Diverticulitis of large intestine without perforation or abscess without bleeding (principal); E16.2 Hypoglycemia, unspecified; E11.9 Type 2 diabetes mellitus without complications; F17.200 Nicotine dependence, unspecified, uncomplicated; Z60.2 Problems related to living alone; Z79.4 Long term (current) use of insulin
CPT/HCPCS: 36415; 80048-TC; 85025-TC; A4606; J1170; Z7610

== ENCOUNTER 2019-01-29 13:12 | Inpatient (IN) | payer BC, OTHER ==
[~2019-01-29] VITALS: Ht 172.7 cm; Wt 78.9 kg
[2019-01-29] VITALS (7 sets, daily range): BP systolic 138–158; BP diastolic 63–90
--- NOTE | 2019-01-29 13:23 | NUR ---
vikki reading HI. dr suresh aware.
--- NOTE | 2019-01-29 13:30 | NUR ---
weakness, muscle cramps, thrist and polyuria x today. Patient a/ox4, breathing even and unlabored, no sob noted. needs attended. Changed into gown, attached to the drafter automotive design layout.
[2019-01-29] MEDS ORDERED: IV NS 0.9% 1,000 ML BAG IV ONE ×3 (14:00→15:00)
[2019-01-29 14:02] LABS: BASOPHILS # (AUTO) 0.1 /CMM (0.0-0.2); BASOPHILS % (AUTO) 1.1 % (0.0-2.0); EOSINOPHILS % (AUTO) 0.1 % (0.0-6.0); HEMATOCRIT 45 % (33-45); HEMOGLOBIN 13.4 g/dL (11.5-14.8); LYMPHOCYTES # (AUTO) 0.7 /CMM (0.8-4.8); LYMPHOCYTES % (AUTO) 7.4 % (20.0-44.0); MEAN CORPUSCULAR HGB CONC 30 g/dl (31.0-36.0); MEAN CORPUSCULAR VOLUME 107 fL (82-100); MONOCYTES # (AUTO) 0.6 /CMM (0.1-1.30); NEUTROPHILS # (AUTO) 7.6 /CMM (1.8-8.9); NEUTROPHILS % (AUTO) 84.4 % (43.0-81.0); PLATELET COUNT (AUTO) 263 /CMM (150-450); RED BLOOD CELL COUNT(AUTO) 4.19 MIL/uL (4.0-5.2); WHITE BLOOD COUNT (AUTO) 9.1 K/uL (4.3-11.0)
--- NOTE | 2019-01-29 14:08 | NUR ---
dr munoz at bedside for eval.
[2019-01-29] MEDS ORDERED: INSULIN REGULAR, HUMAN 100 UNIT/ML 10 ML VIAL ONE (14:26)
[2019-01-29] MEDS ORDERED: INSULIN REGULAR, HUMAN 100 UNIT/ML 10 ML VIAL IV ONE (14:30)
[2019-01-29 14:50] LABS: B-TYPE NATRIURETIC PEPTIDE 191 PG/ML (0-125); CALCIUM, SERUM 9.1 mg/dL (8.5-10.1); CHLORIDE 86 mmol/L (98-107); CREATININE 1.5 mg/dL (0.6-1.3); POTASSIUM 5.3 mmol/L (3.5-5.1); UREA NITROGEN, BLOOD 25 mg/dL (7-18)
[2019-01-29 14:52] LABS: CARBON DIOXIDE 7 mmol/L (21-32); GLUCOSE 839 mg/dL (74-106); SODIUM SERUM 120 mmol/L (136-145)
[2019-01-29 14:56] LABS: ABG BASE EXCESS -15.9 mmol/L; ABG OXYGEN SATURATION 65.9 % (92.0-98.5); ABG PCO2 29.7 mmHg (35.0-45.0); ABG PH 7.185 (7.350-7.450); ABG PO2 41.2 mmHg (75.0-100.0); COHb 1.2 % (0.5-1.5); MetHb 0.4 % (0.0-1.5); O2Hb 64.8 % (94.0-97.0); SITE, ABG Right Brachial
[2019-01-29] MEDS ORDERED: ONDANSETRON HCL/PF 4 MG/2 ML VIAL ONE (14:56)
[2019-01-29] MEDS ORDERED: MORPHINE SULFATE INJ 4 MG/ML DISP.SYRIN ONE (14:56)
[2019-01-29] MEDS ORDERED: ONDANSETRON HCL/PF 4 MG/2 ML VIAL IVP ONE (15:00)
[2019-01-29] MEDS ORDERED: MORPHINE SULFATE INJ 2 MG/ML DISP.SYRIN IV ONE (15:00)
--- NOTE | 2019-01-29 15:20 | NUR ---
CALLED NURSING SUP FOR ICU BED.
[2019-01-29] MEDS ORDERED: INSULIN REGULAR, HUMAN 100 UNIT in IV NS 0.9% 99 ML IV PRN ×4 (15:30→16:30)
--- NOTE | 2019-01-29 15:46 | NUR ---
NURSING SUP GAVE ICU BED 252.
[2019-01-29] MEDS ORDERED: IV NS 0.9% 1,000 ML IV PRN (16:06)
[2019-01-29] MEDS ORDERED: MAG HYDROX/AL HYDROX/SIMETH 30 ML UDC PO PRN (16:30)
[2019-01-29] MEDS ORDERED: ACETAMINOPHEN 325 MG TABLET PO PRN (16:30)
[2019-01-29] MEDS ORDERED: Z GUARD REMEDY 2 OZ OINT TP PRN (16:30)
[2019-01-29] MEDS ORDERED: MAGNESIUM HYDROXIDE 30 ML UDC PO PRN (16:30)
[2019-01-29] MEDS ORDERED: ONDANSETRON HCL/PF 4 MG/2 ML VIAL IVP PRN (16:30)
--- NOTE | 2019-01-29 16:34 | NUR ---
REPORT GIVEN TO FARHEEN ABURTO. PATIENT'S ROOM CHANGED TO 255.
--- NOTE | 2019-01-29 16:38 | NUR ---
REPORT RECEIVED FROM ED PT TO GO TO ROOM 255
--- NOTE | 2019-01-29 16:50 | NUR ---
PUTTY MIXER ADMITTING NOTES RECEIVED PT FROM ED. A/O X4 VIA GURNEY AND ACLS PROTOCOL. NO S/S OF RESPIRATORY DISTRESS 98% ON ROOM AIR. NO C/O PAIN. AMBULATORY FROM GURNEY TO BED. SINUS ON MONITOR NO C/O CHEST PAIN AT THIS TIME. SKIN INTACT IVF RUNNING TO R HAND # 22 AND INSULIN RUNNING TO L HAND # 20 @ 6 UNITS. NPO STATUS ABLE TO MAKE NEEDS KNOWN. ORIENTED TO ROOM AND CALL SYSTEMS BED IN LOW LOCKED POSITION CALL LIGHT WITHIN REACH WILL CONT TO MONITOR ACCORDINGLY
--- NOTE | 2019-01-29 16:50 | NUR ---
PT ARRIVED TO UNIT
--- NOTE | 2019-01-29 16:58 | NUR ---
PATIENT TRANSFERRED TO ICU 255 VIA ACLS PROTOCOL. ENDORSED TO FARHEEN ABURTO.
[2019-01-29 17:40] LABS: BILIRUBIN,DIRECT 0.1 mg/dL (0.0-0.2); BILIRUBIN,TOTAL 0.5 mg/dL (0.2-1.0)
[2019-01-29] MEDS: HYDROCODONE/APAP 5/325MG 1 EACH TABLET PO PRN (17:44)
[2019-01-29] MEDS ORDERED: DEXTROSE 50%-WATER 50 ML DISP.SYRIN IVP PRN (18:00)
[2019-01-29] MEDS: BLOOD SUGAR DIAGNOSTIC 1 EACH STRIP IN SCH ×6 (18:24→23:14)
--- NOTE | 2019-01-29 19:00 | NUR ---
Received patient awake,alert,converses,coherent and appropriate, not in nay distress.On Insulin drip blood sugar/FS monitory q 1 hr. comfort care done ,needs attended.Maintain patient on NPO.
--- NOTE | 2019-01-29 19:15 | NUR ---
REPORT ENDORSED TO NOC
--- NOTE | 2019-01-29 20:00 | NUR ---
Called laboratory to run BMP from the specimen drawn from 1700. Last BMP was checked @1400.
[2019-01-29 20:11] LABS: CREATININE 0.8 mg/dL (0.6-1.3)
[2019-01-29 20:29] LABS: CALCIUM, SERUM 5.1 mg/dL (8.5-10.1)
--- NOTE | 2019-01-29 21:00 | NUR ---
Called MOD archivist economic history, Tom Rodriguez responded. Referred latest K+= 3.0 ,and Anion Gap =21. Continue insulin drip iV changed to D5 1/2 NSS. Will replace Potassium as ordered 40 meq KCL IV.
[2019-01-29] MEDS: IV D5/0.45 NACL 1,000 ML IV PRN (21:12)
[2019-01-29] MEDS: POTASSIUM CL. PREMIX PERIPHER. 50 ML IV SCH ×2 (21:23→22:18)
[2019-01-29] MEDS: ZOLPIDEM TARTRATE 5 MG TABLET PO PRN (22:11)
--- NOTE | 2019-01-29 22:30 | NUR ---
Patient complaining of pain at IV site due to KCL infusion.Only 1 bag of 3 10 meq KCL was given,patient refusing to infuse more of the IV KCL.Called Tom Rodriguez,may give kcl PO instead
[2019-01-29] MEDS ORDERED: POTASSIUM CHLORIDE 10 MEQ TABLET.SA PO ONE (23:00)
[2019-01-30] VITALS (15 sets, daily range): BP systolic 120–168; BP diastolic 61–93
[2019-01-30] MEDS: BLOOD SUGAR DIAGNOSTIC 1 EACH STRIP IN SCH ×6 (00:16→05:38)
--- NOTE | 2019-01-30 02:00 | NUR ---
BMP,MG DRAWN.INSULIN DRIP NOW @ 1 UNIT/HR WITH LU=838.
[2019-01-30 02:08] LABS: CALCIUM, SERUM 7.6 mg/dL (8.5-10.1); MAGNESIUM 1.7 mg/dL (1.8-2.4); POTASSIUM 3.7 mmol/L (3.5-5.1)
--- NOTE | 2019-01-30 03:00 | NUR ---
ANION GAP=11, CO2=23, MINH MONTENEGRO MADE AWARE. 0330 SUPERVISOR METER REPAIR SHOP MONI RESPONDED,WILL START ON SQ COVERAGE AC AND HS ,STOP DRIP ONCE SQ DOSE GIVEN IN AM START DIET ,KEEP IV FLUID SAME. PATIENT REMAINS STABLE.
[2019-01-30] MEDS ORDERED: DEXTROSE 50%-WATER 50 ML DISP.SYRIN IV PRN (05:00)
[2019-01-30] MEDS: IV D5/0.45 NACL 1,000 ML IV PRN ×2 (05:39→14:51)
--- NOTE | 2019-01-30 06:00 | NUR ---
INSULIN DRIP DISCONTINUED.START SQ COVERAGE Q AC AND HS.WILL START DIET THIS AM.
[2019-01-30] MEDS: BLOOD SUGAR DIAGNOSTIC 1 EACH STRIP VI SCH ×4 (06:25→21:48)
[2019-01-30] MEDS: *INSULIN REGULAR(HUMULIN R)HUM 100 UNIT/ML VIAL SQ PRN (06:26)
[2019-01-30 06:49] LABS: BASOPHILS % (AUTO) 0.5 % (0.0-2.0); EOSINOPHILS % (AUTO) 3.4 % (0.0-6.0); HEMATOCRIT 36 % (33-45); HEMOGLOBIN 11.7 g/dL (11.5-14.8); MEAN CORPUSCULAR HGB CONC 32 g/dl (31.0-36.0); MEAN CORPUSCULAR VOLUME 99 fL (82-100); MONOCYTES # (AUTO) 0.6 /CMM (0.1-1.30); MONOCYTES % (AUTO) 8.8 % (2.0-12.0); NEUTROPHILS # (AUTO) 3.5 /CMM (1.8-8.9); NEUTROPHILS % (AUTO) 55.3 % (43.0-81.0); PLATELET COUNT (AUTO) 231 /CMM (150-450); RED BLOOD CELL COUNT(AUTO) 3.66 MIL/uL (4.0-5.2); WHITE BLOOD COUNT (AUTO) 6.3 K/uL (4.3-11.0)
--- NOTE | 2019-01-30 07:00 | NUR ---
Off insulin drip,stable,awake,alert,started on sq coverage.
[2019-01-30 07:01] LABS: ALBUMIN 2.8 g/dL (3.4-5.0); BILIRUBIN,TOTAL 0.5 mg/dL (0.2-1.0); CALCIUM, SERUM 7.9 mg/dL (8.5-10.1); CREATININE 0.9 mg/dL (0.6-1.3); MAGNESIUM 1.8 mg/dL (1.8-2.4); PHOSPHORUS 1.6 mg/dL (2.5-4.9); POTASSIUM 3.9 mmol/L (3.5-5.1); TOTAL PROTEIN, SERUM 5.9 g/dL (6.4-8.2)
--- NOTE | 2019-01-30 07:20 | NUR ---
EXTERIOR DOOR INSTALLER OPENING NOTE RECEIVED REPORT FROM PM NURSE.PATIENT IN BED.AXOX4.NO SOB NO DISTRESS NOTED .ON ROOM AIR.ON TELE MONITOR SR WITH HR 72.IV ON LH #20 WITH D5 1/2 NS @125ML/HR.RH #22 SL.NO INFILTRATION NOTED.BED IS LOW AND IN LOCKED POSITION.CALL LIGHT IN REACH.BED ALARM ON.SRX3.WILL CONTINUE TO MONITOR.
[2019-01-30] MEDS: HYDROCODONE/APAP 5/325MG 1 EACH TABLET PO PRN ×3 (08:48→20:18)
[2019-01-30] MEDS ORDERED: Magnesium 1GM/D5W 100ML PREMIX 100 ML IV SCH (09:30)
[2019-01-30] MEDS ORDERED: NEUTRA PHOS 1 POWD.PACKET PO ONE (10:00)
--- NOTE | 2019-01-30 10:00 | NUR ---
CAMP COORDINATOR NOTE SEEN BY .UPDATED ABOUT PATIENT CONDITION.MADE AWARE ABOUT BP TRENDING HIGH NOT ON ANY BP MEDS.GOT NEW ORDERS.NO NEED FOR VTE PROPHYLAXIS NOW.PATIENT AMBULATORY.TO CONTINUE IVF AND LANTUS.WILL CONTINUE TO MONITOR.
[2019-01-30 10:08] LABS: BASOPHILS % (AUTO) 0.5 % (0.0-2.0); EOSINOPHILS % (AUTO) 2.3 % (0.0-6.0); HEMATOCRIT 36 % (33-45); LYMPHOCYTES # (AUTO) 1.2 /CMM (0.8-4.8); MEAN CORPUSCULAR HGB CONC 33 g/dl (31.0-36.0); MEAN CORPUSCULAR VOLUME 99 fL (82-100); MONOCYTES # (AUTO) 0.4 /CMM (0.1-1.30); MONOCYTES % (AUTO) 7.4 % (2.0-12.0); NEUTROPHILS # (AUTO) 3.5 /CMM (1.8-8.9); NEUTROPHILS % (AUTO) 66.8 % (43.0-81.0); PLATELET COUNT (AUTO) 220 /CMM (150-450); RED BLOOD CELL COUNT(AUTO) 3.69 MIL/uL (4.0-5.2); WHITE BLOOD COUNT (AUTO) 5.3 K/uL (4.3-11.0)
[2019-01-30] MEDS: ATORVASTATIN 10 MG TABLET PO SCH (10:18)
[2019-01-30] MEDS: LOSARTAN POTASSIUM 25 MG TABLET PO SCH (10:18)
[2019-01-30 10:33] LABS: ABG BASE EXCESS -5.9 mmol/L; ABG OXYGEN SATURATION 95.3 % (92.0-98.5); ABG PCO2 36.9 mmHg (35.0-45.0); ABG PH 7.336 (7.350-7.450); ABG PO2 79.7 mmHg (75.0-100.0); AaDO2 25.8 mmHg; COHb 0.8 % (0.5-1.5); MetHb 0.4 % (0.0-1.5); O2Hb 94.2 % (94.0-97.0); SITE, ABG Left Radial; VENT MODE, BG ROOM AIR
[2019-01-30] MEDS: INSULIN REGULAR, HUMAN 100 UNIT/ML 3 ML VIAL SQ PRN ×2 (11:44→18:21)
[2019-01-30] MEDS: INSULIN GLARGINE, 100 UNIT/ML CARTRIDGE SQ SCH (11:45)
--- NOTE | 2019-01-30 13:00 | NUR ---
MS PHONE TECHNICIAN FROM ICU NOTES RECEIVED PATIENT IN BED.AXOX4.NO SOB NO DISTRESS NOTED .ON ROOM AIR.ON TELE MONITOR SR WITH HR 72.IV ON LH #20 WITH D5 1/2 NS @125ML/HR.RH #22 SL INFILTRATED AND REMOVED IV H/L ON THE RT HAND.PT REFUSED ICE PACK TO BE APPLIED INSPITE OF EXPLAINING ITS RISKS AND BENEFITS.BED IS LOW AND IN LOCKED POSITION.CALL LIGHT IN REACH.BED ALARM ON.SRX3.WILL CONTINUE TO MONITOR.
--- NOTE | 2019-01-30 15:51 | NUR ---
CAUGHT PT EATING CHOCOLATE CANDY AND WAS SAYING IT'S ONLY 1 GM CARB. PT TEACHING PROVIDED REGARDING DIABETIC REGIMEN, DIABETIC MEAL PREPARATION AND WHAT ARE THE CONSEQUENCES OF EATING HIGH SUGARY,HIGH CARB FOODS.PT KEPT THE CANDY AND EXPLAINED TO PT THAT HER BLOOD SUGAR WILL BE HIGHER THAN NORMAL SINCE SHE IS ALSO PRESENTLY ON IVF D51/2 NS WHICH WILL ZOOM HER BLD SUGAR HIGH.PT VERBALIZED UNDERSTANDING OF INSTRUCTIONS GIVEN AND STOPPED EATING THE CHOCOLATE CANDY.ALSO NOTED TO BE SURROUNDED WITH DEVAN JUICE AND ROSA ELENA DRINK.PT GAVE IT TO HER DAUGHTER AT THE BEDSIDE.WILL NOTIFY MD TO DC IVF D51/2 NS.PT'S BLD SUGAR WAS 374 AT THIS TIME.
--- NOTE | 2019-01-30 17:00 | NUR ---
BS 374.NOTIFIED DR DUVALL AND CAROLEE'D PT'S D51/2 NS IVF
--- NOTE | 2019-01-30 19:25 | NUR ---
RN OPENING NOTES RECEIVED PATIENT AWAKE IN BED. ALERT AND ORIENTED X 4. NO SIGNS OF RESPIRATORY DISTRESS. DENIES SHORTNESS OF BREATH. ON ROOM AIR TOLERATING WELL. IV SITE LEFT HAND #20G S/L, NO INFECTION/INFILTRATION NOTED, INTACT AND PATENT. EXPLAINED PLAN OF CARE, PATIENT STATES SHE WILL COMPLY. SAFETY PRECAUTIONS IMPLEMENTED; CALL LIGHT WITHIN REACH, BED LOWEST POSITION, BED LOCKED, BILATERAL UPPER SIDE RAILS UP. WILL CONTINUE TO MONITOR.
[2019-01-30] MEDS: ZOLPIDEM TARTRATE 5 MG TABLET PO PRN (21:55)
--- NOTE | 2019-01-30 22:00 | NUR ---
RN NOTES BLOOD SUGAR 77. NO INSULIN GIVEN. WILL CONTINUE TO MONITOR.
--- NOTE | 2019-01-31 06:27 | NUR ---
RN NOTES BLOOD SUGAR 120. NO INSULIN GIVEN PER DOCTOR ORDER VIA SLIDING SCALE. WILL CONTINUE TO MONITOR.
--- NOTE | 2019-01-31 06:28 | NUR ---
RN CLOSING NOTES PATIENT CURRENTLY ASLEEP IN BED, EASILY AROUSABLE TO VOICE. NO SIGNS OF RESPIRATORY DISTRESS, NO SHORTNESS OF BREATH NOTED. IV SITE LEFT HAND INTACT AND PATENT, S/L, NO INFECTION/INFILTRATION NOTED. NO COMPLAINTS OF PAIN OR DISCOMFORT AT THIS TIME. SAFETY PRECAUTIONS IMPLEMENTED; CALL LIGHT WITHIN REACH, BED LOWEST POSITION, BED LOCKED, BILATERAL UPPER SIDE RAILS UP. WILL CONTINUE TO MONITOR AND THEN WILL ENDORSE TO DAYSHIFT NURSE FOR CONTINUITY OF CARE.
[2019-01-31 07:17] LABS: CALCIUM, SERUM 8.1 mg/dL (8.5-10.1); CREATININE 0.6 mg/dL (0.6-1.3); MAGNESIUM 2.1 mg/dL (1.8-2.4); POTASSIUM 3.3 mmol/L (3.5-5.1)
[2019-01-31 08:00] VITALS: BP 156/78
[2019-01-31] MEDS: BLOOD SUGAR DIAGNOSTIC 1 EACH STRIP VI SCH ×4 (08:16→21:07)
[2019-01-31] MEDS: LOSARTAN POTASSIUM 25 MG TABLET PO SCH (08:32)
[2019-01-31] MEDS: INSULIN GLARGINE, 100 UNIT/ML CARTRIDGE SQ SCH (08:39)
[2019-01-31] MEDS ORDERED: POTASSIUM CHLORIDE 20 MEQ TAB.PRT.SR PO ONE (09:00)
[2019-01-31] MEDS: HYDROCODONE/APAP 5/325MG 1 EACH TABLET PO PRN ×3 (11:39→20:22)
[2019-01-31] MEDS: INSULIN REGULAR, HUMAN 100 UNIT/ML 3 ML VIAL SQ PRN ×2 (11:40→17:18)
--- NOTE | 2019-01-31 18:51 | NUR ---
PATIENT IN BED. ALERT AND ORIENTED X 4. NO SIGNS OF RESPIRATORY DISTRESS. DENIES SHORTNESS OF BREATH. ON ROOM AIR TOLERATING WELL. IV SITE LEFT HAND #20G S/L, INTACT AND PATENT.ALL NEEDS ATTENDED. SAFETY PRECAUTIONS IMPLEMENTED; CALL LIGHT WITHIN REACH, BED LOWEST POSITION, BED LOCKED, BILATERAL UPPER SIDE RAILS UP. WILL CONTINUE TO MONITOR.
--- NOTE | 2019-01-31 19:34 | NUR ---
MS RN RECEIVE PT IN BED A/O X 4, STABLE AND NOT IN DISTRESS, SAFETY MEASURES AT ALL TIMES. WILL CONT TO MTR.
[2019-01-31 20:00] VITALS: BP 151/80
[2019-01-31] MEDS: ATORVASTATIN 10 MG TABLET PO SCH (21:06)
[2019-01-31] MEDS: ZOLPIDEM TARTRATE 5 MG TABLET PO PRN (21:09)
[2019-01-31] MEDS: *INSULIN REGULAR(HUMULIN R)HUM 100 UNIT/ML VIAL SQ PRN (21:11)
--- NOTE | 2019-02-01 06:24 | NUR ---
PT ASLEEP AND EASILY AWAKEN, RESPIRATIONS EVEN AND UNLABORED, NO S/S OF DISTRESS, AM CARE RENDERED, BOTH LOWER EXTREMITIES ELEVATED TO REDUCE EDEMA. ASSISTED PT REPOSITION EVERY 2 HOURS. OFFLOAD HEELS AND ELBOWS AT ALL TIMES. KEPT CLEAN, DRY AND COMFORTABLE. SAFETY MEASURES AT ALL TIMES. WILL ENDORSE NEXT SHIFT POC. Addendum: 02/01/19 at 0625 by HAMIDA MAKI RN PLEASE DISREGARD THIS DOCUMENTATION THIS IS FOR DIFFERENT PATIENT. MISTAKEN ENTRY.
--- NOTE | 2019-02-01 06:25 | NUR ---
PT SLEPT WELL THROUGHOUT THE NIGHT. AM CARE RENDERED, NO C/O OF PAIN AT THIS TIME. NEEDS ATTENDED AND ANTICIPATED. KEPT CLEAN, DRY AND COMFORTABLE. SAFETY MEASURES AT ALL TIMES. WILL ENDORSE TO NEXT SHIFT PLAN OF CARE.
[2019-02-01] MEDS: BLOOD SUGAR DIAGNOSTIC 1 EACH STRIP VI SCH (06:41)
[2019-02-01] MEDS: INSULIN REGULAR, HUMAN 100 UNIT/ML 3 ML VIAL SQ PRN (06:42)
[2019-02-01 08:38] VITALS: BP 133/79
[2019-02-01] MEDS: LOSARTAN POTASSIUM 25 MG TABLET PO SCH (08:38)
[2019-02-01] MEDS: INSULIN GLARGINE, 100 UNIT/ML CARTRIDGE SQ SCH (08:39)
[2019-02-01] MEDS: HYDROCODONE/APAP 5/325MG 1 EACH TABLET PO PRN (08:46)
[2019-02-01] MEDS ORDERED: Insulin Glargine,Hum SQ (09:25)
[2019-02-01] MEDS ORDERED: ATOR10TA PO (09:25)
[2019-02-01] MEDS ORDERED: LOSA25TA3 PO (09:25)
--- NOTE | 2019-02-01 12:30 | NUR ---
Patient cleared for discharge by MD and medically stable , BS controlled. Patient awake alert and oriented x4 , VS are stable and within baseline. Patient educated regarding management BS at home and prescription given. Patient verbalized understanding and will f/u with technology coach and PCP next week. All needs attended. PAtient signed d/c papers and valuable form and all belongings with the patient. IV line removed with no bleeding at the site. ID wrist band removed. Patient safely transferred to [facility] via wheelchair accompanied by SENIOR PROFESSIONAL SERVICES CONSULTANT.
== END 2019-02-01 12:40 | disposition home or self-care (01) | DRG 637 ==
LOC: ER 13:12 → ICU 15:49 → MED 01-30 13:24
PROVIDERS: ADMIT Internal Medicine; ATTEND Internal Medicine
DX: E10.10 Type 1 diabetes mellitus with ketoacidosis without coma (principal); N17.0 Acute kidney failure with tubular necrosis; E87.5 Hyperkalemia
CPT/HCPCS: 36415; 36600; 71045-TC; 73502; 80048-TC; 80053-TC; 80061-TC; 82247-TC; 82248-TC; 82803-TC; 82962-TC; 83605-TC; 83735-TC; 83880; 84100-TC; 84484-TC; 85025-TC; 85730-TC; 87040-TC; 87081-TC; G0378; J1815; J2270; J2405; J3480; J3490; J7030

== ENCOUNTER 2019-04-10 09:47 | Emergency (ER) | payer BC ==
[~2019-04-10] VITALS: Ht 172.7 cm; Wt 79.4 kg
[~2019-04-10 09:47] MED LIST changes: +ATOR10TA PO; +Insulin Glargine,Hum SQ; +LOSA25TA3 PO
[2019-04-10 09:52] VITALS: BP 143/79
[2019-04-10] MEDS ORDERED: oxyCODONE/APAP (5/325 MG) 1 UDTAB TABLET ONE (10:19)
[2019-04-10] MEDS ORDERED: oxyCODONE/APAP (5/325 MG) 1 UDTAB TABLET PO ONE (10:30)
--- NOTE | 2019-04-10 10:44 | NUR ---
Patient awake alert no ndistress
== END 2019-04-10 13:14 | disposition home or self-care (01) ==
LOC: ER 09:51
DX: S05.12XA Contusion of eyeball and orbital tissues, left eye, initial encounter (principal); S09.8XXA Other specified injuries of head, initial encounter; I10 Essential (primary) hypertension; E11.9 Type 2 diabetes mellitus without complications; F10.10 Alcohol abuse, uncomplicated; F17.200 Nicotine dependence, unspecified, uncomplicated; Y90.9 Presence of alcohol in blood, level not specified; Z60.2 Problems related to living alone; Z79.4 Long term (current) use of insulin; Z79.899 Other long term (current) drug therapy; W01.198A Fall on same level from slipping, tripping and stumbling with subsequent striking against other object, initial encounter; Y93.89 Activity, other specified; Y92.89 Other specified places as the place of occurrence of the external cause; Y99.8 Other external cause status
CPT/HCPCS: 70450-TC; 70486-TC; 70490-TC